=== PATIENT | female | born 1995 | race Caucasian/White ===

== ENCOUNTER 2016-06-01 16:15 | Emergency (ER) | payer OTHER ==
[2016-06-01 16:22] VITALS: BP 139/92
--- NOTE | 2016-06-01 19:43 | PROVIDER DOCUMENTATION ---
HPI-Musculoskeletal Pain/Inj - GENERAL Chief Complaint: Extremity Injury Stated Complaint: FOOT INJURY Time Seen by Provider: 06/01/16 18:22 Source: patient - HX OF PRESENT ILLNESS-MUSKULOSKELTAL Quality of Pain: reports: aching, tightness Severity in ED: mild Onset/Duration: just prior to arrival Timing: still present Modifying Factors: improves with: nothing Any recent injury?: Yes ("A HORSE FELL ON ME" ) Locality of Occurance: Home Similar Symptoms Previously?: No Recently seen or treated by another doctor?: No - FALL INJURY Location of Pain/Injury: reports: lower extremity Pain Radiation: reports: no radiation Loss of Consciousness: no loss of consciousness - LOWER EXTREMITY PAIN/INJURY Lower Extremities Pain: foot: left, ankle: left, heel: left (TENDER TO TOUCH PAIN WITH EXTENSON AND FLEXION) Context / Method of Injury: reports: sports injury Associated Symptoms: reports: denies symptoms Review of Systems - Adult - REVIEW OF SYSTEMS - ADULT Constitutional: reports: no symptoms reported Eyes: reports: no symptoms reported Ears, Nose, Mouth & Throat: reports: no symptoms reported Cardiovascular: reports: no symptoms reported Respiratory: reports: no symptoms reported Gastrointestinal: reports: no symptoms reported Genitourinary: reports: no symptoms reported Musculoskeletal: reports: other (LEFT ANKLE FOOT AND HEEL TENDER) Integumentary: reports: no symptoms reported Neurological: reports: no symptoms reported Psychiatric: reports: no symptoms reported Endocrine: reports: no symptoms reported Hematologic/Lymphatic: reports: no symptoms reported Allergic/Immunologic: reports: no symptoms reported All Other Systems: Reviewed and Negative Past History - Adult - PAST MEDICAL HISTORY-ADULT Review of Records: reports: Nursing Assessment Review Major Childhood Illnesses: reports: denies history Cardiovascular: reports: denies history Respiratory: reports: denies history Gastrointestinal: reports: denies history Obstetrical/Gynecological: reports: denies history Genitourinary: reports: denies history Musculoskeletal: reports: denies history Neurological: reports: denies history Psychiatric: reports: denies history Endocrine/Immune: reports: denies history - PRIOR SURGERIES/PROCEDURES Surgical/Procedure History: reports: none - PRIOR HOSPITALIZATIONS Prior Hospitalizations: reports: none - FAMILY HISTORY Family History: reviewed, not pertinent - SOCIAL HISTORY Smoking: denies Substance Use: none/never Alcohol Use Frequency: never Living Situation: family Physical Exam-Injury Related - Physical Exam-Injury Related Initial Vital Signs Reviewed: Yes General Appearance: appears well, alert Immobilization?: negative: backboard, C-collar, applied in ED, applied [employer] Eyes: PERRL/EOMI, pink conjunctivae Head, Ears, Nose, Mouth & Throat: normocephalic/atraumatic, moist mucous membranes Neck: non-tender Respiratory: chest non-tender, lungs clear Cardiovascular: normal peripheral pulses, regular rate, rhythm Peripheral Pulses: dorsalis-pedis (L): 3+ Male Genitalia: herpes-like lesion Lymphatic: no adenopathy Extremity: tenderness, other (PAIN TO POSTERIOR HEEL AND FOOT, NO SWELLING, PAIN WITH FLEXION AND EXTENSOIN) Progress - PLAN OF CARE/RESULTS Progress/Plan/Lab Results: Vital Signs Temp Pulse Resp BP Pulse Ox 06/01/16 16:19 97.4 F L 96 H 20 139/92 99 strawberry [[place]] Allergy (Severe, Verified 10/17/13 10:26) ANAPHYLAXIS tomato [Tomato] Allergy (Severe, Verified 10/17/13 10:26) ANAPHYLAXIS NSAIDS (Non-Steroidal Anti-Inflamma Allergy (Verified 06/01/16 18:34) HIVES Sulfa (Sulfonamide Antibiotics) Allergy (Verified 06/01/16 18:34) HIVES nickel [Nickel] Adverse Reaction (Mild, Verified 10/17/13 10:26) RASH Mometasone/Formoterol [Dulera 200 Mcg/5 Mcg Inhaler] 13 gm IH BID 10/17/13 Montelukast [Singulair] 10 mg PO QHS 10/17/13 Norethindrone-E.estradiol-Iron [Loestrin Fe 1-20 Tablet] 1 each PO HS 10/17/13 Fexofenadine/Pseudoephedrine [Carmen-D 24 Hour Tablet] 1 each PO DAILY Departure - Departure Time of Disposition Order: 20:26 DIAGNOSIS: Sprain of lower leg Qualifiers: Encounter type: initial encounter Laterality: left Qualified Code(s): S83.92XA - Sprain of unspecified site of left knee, initial encounter Disposition: HOME 01 Certified Medical Emergency: Emergent Condition: Stable Additional Instructions: TAKE NORCO WITH FOOD. DO NOT WORK, DRIVE OR DRINK ALCOHOL AND TAKE PAIN MEDICINE OR MUSCLE RELAXER. USE, ICE, BOOT, ELEVATE. USE YOUR CRUTCHES. ED Follow Up Instructions: You have been treated by a care provider in the Emergency Department. These instructions are being provided to you so you can have an understanding of how to care for yourself upon discharge. Upon discharge from the Emergency Department, you are responsible for making arrangements for follow-up care by a physician of your choice. Take all prescribed medications as directed. Return to the Emergency Department immediately for any new or worsening symptoms. You may call the Physician Referral phone number at [phone] to obtain a list of Physicians who are taking new patients. IF NOT BETTER IN 5-7 DAYS FOLLOW UP WITH YOUR PCP OR ORTHOPEDIST FOR FURTHER EVALUATION AND MANAGEMENT. RETURN TO ER FOR ANY WORSENING SYMPTOMS. Referrals: Cassandra Latif MD [STAFF PHYSICIAN] -
[2016-06-01] MEDS ORDERED: NORCO-7.5 PO ONE (20:25)
--- NOTE | 2016-06-02 07:08 | Diag Imaging Result Document ---
PROCEDURE NAME: FOOT COMPLETE LEFT - 06/01/2016 LEFT FOOT, THREE VIEWS: FINDINGS: No fracture. No dislocation. IMPRESSION: No acute bony injury.
== END 2016-06-01 20:48 | disposition home or self-care (01) ==
LOC: ED 16:15
DX: S83.92XA Sprain of unspecified site of left knee, initial encounter (principal); S99.922A Unspecified injury of left foot, initial encounter; M79.672 Pain in left foot; Z79.899 Other long term (current) drug therapy; Z79.51 Long term (current) use of inhaled steroids; W55.19XA Other contact with horse, initial encounter